=== PATIENT | male | born 1930 | race Caucasian/White ===

== ENCOUNTER 2017-02-10 10:05 | Emergency (ER) | payer MEDICARE, OTHER ==
[~2017-02-10] VITALS: Ht 154.9 cm; Wt 58.5 kg
[~2017-02-10 10:05] MED LIST: ASPI81; CLOP75; SIMV5TAB32; TAB-TAB
[2017-02-10 10:09] VITALS: BP 147/63; PULSE 84; RESP 15; TEMP 98.2; O2SAT 99
[2017-02-10 10:30] VITALS: BP 135/91; PULSE 78; RESP 20; O2SAT 97
[2017-02-10] MEDS ORDERED: ASPIRIN 81 MG CHEW TAB CHEW ONE (10:45)
[2017-02-10] MEDS ORDERED: SODIUM CHLORIDE 0.9% FLUSH 10 ML FLUSH IVF PRN (10:45)
--- NOTE | 2017-02-10 10:59 | PD ---
HPI Chief Complaint: Medical Clearance Time Seen by Provider: 10:43 Travel History International Travel<30 days: No Contact w/Intl Traveler<30days: No Traveled to known affect area: No History of Present Illness HPI Patient is a 86 yo male with CAD with stent placement [address] Hernandez. The patient states today he was feeling a "woozie", lightheaded, and abnormal. 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 The patient denies SOB, chest pain, new visual deficits, new neurological changes, aphasia, ataxia, weakness, palpitations, abdominal pain, headaches. The patient is currently taking simvastatin, lisinopril, Ferrous sulfate, Aspirin 81 mg. He states he did not take his aspirin 81 mg this morning and does not like to take it because of the bruising. 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 PMH: CAD, stent placement [address] 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 Social: Does not smoke anymore, He stopped smoking 60 years ago, he smoked about a pack a day for 10 years Family: Unsure about his family history because he is an orphan [facility] Past Medical History Hx Anticoagulant Therapy: Yes Anemia: Yes Autoimmune Disease: No Cardiovascular Problems: Yes High Cholesterol: Yes Endocrine: No Genitourinary: No Musculoskeletal: No Neurologic: No Respiratory: No Myocardial Infarction: Yes (2004) Past Surgical History Appendectomy: Yes Coronary Stent: Yes (2004) Social History Alcohol Use: Yes (ONE GLASS [employer] W[employer] NIGHTLY) Tobacco Use: No Substance Use: No Allergies-Medications (Allergen,Severity, Reaction): Coded Allergies: No Known Allergies (Verified , 02/10/17) Reported Meds & Prescriptions Reported Meds & Active Scripts Active Reported Ferrous Sulfate 325 Mg (65 Mg Iron) Tablet 325 Mg PO DAILY Aspirin 81 Mg Chew 81 Mg CHEW DAILY Atorvastatin (Atorvastatin Calcium) 10 Mg Tab 10 Mg PO HS Lisinopril 10 Mg Tab 10 Mg PO DAILY Review of Systems Except as stated in HPI: all other systems reviewed are Neg Physical Exam Narrative GENERAL: In no acute distress, pleasant man SKIN: Warm and dry. HEAD: Atraumatic. Normocephalic. EYES: Pupils equal and round. No scleral icterus. No injection or drainage. ENT: No nasal bleeding or discharge. Mucous membranes pink and moist. NECK: Trachea midline. No JVD. CARDIOVASCULAR: Regular rate and rhythm. s1 and s2 appreciated no MGR. RESPIRATORY: No accessory muscle use. Clear to auscultation. Breath sounds equal bilaterally. GASTROINTESTINAL: Abdomen soft, non-tender, nondistended. Hepatic and splenic margins not palpable. MUSCULOSKELETAL: Extremities without clubbing, cyanosis, or edema. No obvious deformities. NEUROLOGICAL: Awake and alert. No obvious cranial nerve deficits. Motor grossly within normal limits. Five out of 5 muscle strength in the arms and legs. Normal speech. PSYCHIATRIC: Appropriate mood and affect; insight and judgment normal. Data Data Last Documented VS Vital Signs Date Time Temp Pulse Resp B/P (MAP) Pulse Ox O2 Delivery O2 Flow Rate FiO2 02/10/17 12:43 02/10/17 11:05 96 Room Air 02/10/17 10:30 78 20 02/10/17 10:09 98.2 Orders Orders Electrocardiogram (02/10/17 10:43) Basic Metabolic Panel (Bmp) (02/10/17 10:43) Ckmb (Isoenzyme) Profile (02/10/17 10:43) Complete Blood Count With Diff (02/10/17 10:43) Magnesium (Mg) (02/10/17 10:43) Prothrombin Time / Inr (Pt) (02/10/17 10:43) Act Partial Throm Time (Ptt) (02/10/17 10:43) Troponin I (02/10/17 10:43) Chest, Single Ap (02/10/17 10:43) Ecg Monitoring (02/10/17 10:43) Iv Access Insert/Monitor (02/10/17 10:43) Oximetry (02/10/17 10:43) Oxygen Administration (02/10/17 10:43) Sodium Chloride 0.9% Flush (Ns Flush) (02/10/17 10:45) Aspirin Chew (Aspirin Chew) (02/10/17 10:45) CKMB (02/10/17 10:55) CKMB% (02/10/17 10:55) Labs Laboratory Tests Test 02/10/17 10:55 White Blood Count 10.4 TH/MM3 Red Blood Count 4.49 MIL/MM3 Hemoglobin 11.9 GM/DL Hematocrit 37.4 % Mean Corpuscular Volume 83.4 FL Mean Corpuscular Hemoglobin 26.4 PG Mean Corpuscular Hemoglobin Concent 31.7 % Red Cell Distribution Width 14.0 % Platelet Count 230 TH/MM3 Mean Platelet Volume 9.2 FL Neutrophils (%) (Auto) 78.7 % Lymphocytes (%) (Auto) 13.0 % Monocytes (%) (Auto) 7.3 % Eosinophils (%) (Auto) 0.8 % Basophils (%) (Auto) 0.2 % Neutrophils # (Auto) 8.2 TH/MM3 Lymphocytes # (Auto) 1.4 TH/MM3 Monocytes # (Auto) 0.8 TH/MM3 Eosinophils # (Auto) 0.1 TH/MM3 Basophils # (Auto) 0.0 TH/MM3 CBC Comment DIFF FINAL Differential Comment Prothrombin Time 10.2 SEC Prothromb Time International Ratio 0.9 RATIO Activated Partial Thromboplast Time 23.7 SEC Blood Urea Nitrogen 37 MG/DL Creatinine 0.93 MG/DL Random Glucose 114 MG/DL Calcium Level 8.6 MG/DL Magnesium Level 2.1 MG/DL Sodium Level 142 MEQ/L Potassium Level 4.3 MEQ/L Chloride Level 110 MEQ/L Carbon Dioxide Level 24.0 MEQ/L Anion Gap 8 MEQ/L Estimat Glomerular Filtration Rate 77 ML/MIN Total Creatine Kinase 160 U/L Creatine Kinase MB 4.8 NG/ML Troponin I LESS THAN 0.02 NG/ML MDM Medical Decision Making Medical Screen Exam Complete: Yes Emergency Medical Condition: Yes Differential Diagnosis ACS seems unlikely, DC seems unlikely, fatigue, anemia. Narrative Course Patient roomed emerged permit, initial EKG shows bigeminy pattern, labs were reassuring. 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 Hernandez's office stating that he should go to the emergency department. He was ordered a class but decided to leave early to go be seen by us. The patient initial workup negative except for the bigeminy was discussed with Dr. Hernandez who would like to see the patient tomorrow to set him up for a Holter and ultimately a stress test in the near future. I think this is an appropriate course of action for the patient and he is agreeable like to go home. He was offered observation status would rather go home. At this time he is here to get back to his welding class and I see no reason why he should be able to do so. Discussed need to call Dr. Hernandez this afternoon to set up a time for his appointment tomorrow. He stable for discharge. Diagnosis Primary Impression: Weakness Referrals: Carl Hernandez MD Additional Instructions: Call Dr. Hernandez this afternoon for an appointment tomorrow. Disposition: 01 DISCHARGE HOME Condition: Stable Omero Liu MD Feb 10, 2017 10:59
[2017-02-10] MEDS ORDERED: ASPI81CH CHEW (11:00)
[2017-02-10] MEDS ORDERED: ATOR10TA15 PO (11:00)
[2017-02-10] MEDS ORDERED: FERR325T8 PO (11:00)
[2017-02-10] MEDS ORDERED: LISI10TA3 PO (11:00)
--- NOTE | 2017-02-10 11:23 | RADRPT ---
EXAM DATE/TIME: 02/10/2017 10:59 [facility] COMPARISON: No previous studies available for comparison. INDICATIONS : Palpitations. MEDICAL HISTORY : Myocardial infarction. SURGICAL HISTORY : Coronary artery stent. ENCOUNTER: Initial ACUITY: 1 day PAIN SCORE: 0/10 LOCATION: Bilateral chest FINDINGS: A single view of the chest demonstrates the lungs to be symmetrically aerated without evidence of mas s, infiltrate or effusion. The cardiomediastinal contours are unremarkable. Osseous structures are intact. CONCLUSION: 1. No acute cardiopulmonary disease. Mohamud Bender MD on February 10, 2017 at 11:20 Board Certified Radiologist. This report was verified electronically.
[2017-02-10 11:26] LABS: AUTOMATED NEUTROPHIL # 8.2 TH/MM3 (1.8-7.7); BASOPHIL % 0.2 % (0.0-2.0); EOSINOPHIL # 0.1 TH/MM3 (0-0.4); EOSINOPHIL % 0.8 % (0.0-4.0); HEMATOCRIT 37.4 % (39.0-51.0); HEMO FLAGS DIFF FINAL; LYMPHOCYTE # 1.4 TH/MM3 (1.0-4.8); MEAN CELL VOLUME 83.4 FL (80.0-100.0); MEAN CORPUSCULAR HEMOGLOBIN 26.4 PG (27.0-34.0); MEAN CORPUSCULAR HGB CONC 31.7 % (32.0-36.0); MONO % 7.3 % (0.0-8.0); NEUT % 78.7 % (16.0-70.0); PLATELET COUNT 230 TH/MM3 (150-450); RED BLOOD COUNT 4.49 MIL/MM3 (4.50-5.90); WHITE BLOOD COUNT 10.4 TH/MM3 (4.0-11.0)
[2017-02-10 11:34] LABS: APTT (PATIENT) 23.7 SEC (24.3-30.1); INTERNATIONAL NORMALIZED RATIO 0.9 RATIO; PROTHROMBIN TIME - PATIENT 10.2 SEC (9.8-11.6)
[2017-02-10 11:40] LABS: ANION GAP 8 MEQ/L (5-15); BLOOD UREA NITROGEN 37 MG/DL (7-18); CHLORIDE 110 MEQ/L (98-107); GLOMERULAR FILTRATION RATE 77 ML/MIN (>89); MAGNESIUM 2.1 MG/DL (1.5-2.5); POTASSIUM 4.3 MEQ/L (3.5-5.1); SODIUM (NA) 142 MEQ/L (136-145)
[2017-02-10 11:45] LABS: CREATINE KINASE 160 U/L (39-308)
[2017-02-10 11:57] LABS: CKMB 4.8 NG/ML (0.5-3.6)
--- NOTE | 2017-02-11 13:47 | EKG ---
Date Performed: 02/10/2017 Time Performed: 10:34:43 PTAGE: 86 years EKG: Sinus rhythm WITH FREQUENT VENTRICULAR PREMATURE COMPLEXES IN A BIGEMINAL PATTERN INCOMPLETE RIGHT BUNDLE BRANCH BLOCK ABNORMAL RHYTHM ECG PREVIOUS TRACING : 08/24/2004 13.13 Previous ischemic anterior changes resolved from the prior tracing, but the bigeminy is new. DOCTOR: Carl Hernandez Interpretating Date/Time 02/11/2017 13:53:12
== END 2017-02-10 12:51 | disposition home or self-care (01) ==
LOC: NEPE 10:05
DX: R53.1 Weakness (principal); I25.2 Old myocardial infarction; I45.10 Unspecified right bundle-branch block; I25.10 Atherosclerotic heart disease of native coronary artery without angina pectoris; Z79.899 Other long term (current) drug therapy; Z87.891 Personal history of nicotine dependence; Z95.5 Presence of coronary angioplasty implant and graft
CPT/HCPCS: 71010; 80048; 82550; 82552; 83735; 84484; 85025; 85610; 85730; 93005; 99285